=== PATIENT | female | born 1970 | race Two or more races ===

== ENCOUNTER → 2024-08-18 | Outpatient (CLI) | payer BC, SELFPAY ==
--- NOTE | 2024-08-18 14:00 | XR_ITS ---
Examination: Thyroid sonography complete TECHNIQUE: Multiple grayscale sonographic images thyroid lobes are carful analysis Exam date and time: 03/18/2024 1421 hours Comparison January 01, 2012 INDICATIONS: Abnormal laboratory thyroid values this month FINDINGS: Right thyroid 6.5 x 1.7 x 2.4 cm Midpole cyst 3 mm Left thyroid 5.8 x 1.7 x 2.5 cm Lower pole cyst 3 x 3 mm IMPRESSION: Thyromegaly, consider correlation with I-123 thyroid uptake and scan
== END | disposition home or self-care (01) ==
LOC: CDIM 13:47
PROVIDERS: PCP Registered Nurse General Practice; Referring Provider Registered Nurse General Practice; Visit Provider Registered Nurse General Practice
DX: E01.0 Iodine-deficiency related diffuse (endemic) goiter (principal)
CPT/HCPCS: 76536

== ENCOUNTER → 2024-12-22 | Outpatient (CLI) | payer BC, SELFPAY ==
--- NOTE | 2024-12-22 08:45 | XR_ITS ---
Examination: Thyroid sonography complete TECHNIQUE: Grayscale sonographic images thyroid lobes Exam date and time: December 22, 2024 0915 hours Comparison August 18, 2024 INDICATIONS: Bilateral thyroid cysts on thyroid sonogram August 18, 2024, with significant thyromegaly FINDINGS: Right thyroid 5.5 cm Upper pole nodule 6 x 3 x 5 mm Left thyroid 5.4 cm Lower pole cyst 3 x 2 x 3 mm IMPRESSION: Thyromegaly, consider correlation with oral I-123 thyroid uptake and scan as clinically warranted Small solid nodule upper right thyroid lobe
== END | disposition home or self-care (01) ==
LOC: CDIM 08:55
PROVIDERS: PCP Registered Nurse General Practice; Referring Provider Family Medicine; Visit Provider Family Medicine
DX: E01.0 Iodine-deficiency related diffuse (endemic) goiter (principal)
CPT/HCPCS: 76536